=== PATIENT | male | born 1980 | race Caucasian/White ===

== ENCOUNTER 2023-04-04 18:35 | Emergency (ER) | payer OTHER, SELFPAY ==
--- NOTE | ~2023-04-04 | US_ITS ---
EXAMINATION: US venous doppler [facility] DATE: 04/04/2023 21:14 INDICATION: both swollen but R > L . TECHNIQUE: Grayscale images without and with compression and Doppler images of the bilateral lower ex tremity veins were obtained. COMPARISON: None FINDINGS: The right common femoral vein, profunda (deep) femoral vein, femoral vein, popliteal vein, peroneal v ein, posterior tibial veins, and greater saphenous vein are patent. The left common femoral vein, profunda (deep) femoral vein, femoral vein, popliteal vein, peroneal v ein, posterior tibial veins, and greater saphenous vein are patent. IMPRESSION: Patent bilateral lower extremity veins. No evidence of deep venous thrombosis. Reviewed, dictated and finalized at location [facility]
[2023-04-04 18:51] VITALS: BP 124/62; PULSE 81; RESP 20; TEMP 36.2; O2SAT 99
--- NOTE | 2023-04-04 19:56 | ED.EXTPRO ---
HPI - Extremity Problem General Chief complaint: Extremity Problem,Nontraumatic Stated complaint: LEGS SWELLING XWK Time Seen by Provider: 04/04/23 19:55 Source: patient and family () Limitations: no limitations History of Present Illness HPI Narrative: This is a 42 yo male who presents with bilateral lower extremity swelling for the past week. However, he has noticed increased swelling of the right more than the left since Monday. No shortness of breath. He states this happened 6 years ago as well. No history of DVT/PE. Not on anticoagulation. No family history of DVT/PE. No paresthesias. Related Data Allergies Allergy/AdvReac Type Severity Reaction Status Date / Time No Known Allergies Allergy Verified 04/04/23 19:46 [facility] Social History Social History (Updated 04/06/23 @ 16:48 by Katelyn Lopes MD) Social History: Exam Narrative: GENERAL: Well-appearing, well-nourished, and in no acute distress. HEAD: Normocephalic, atraumatic. EYES: Non injected, non icteric ENT: Nares clear, no rhinorrhea or epistaxis. NECK: Supple. CHEST: Speaking in full sentences. No respiratory distress. HEART: Regular rate and rhythm. DP pulses slightly diminished in the setting of pitting edema, but still palpable . ABDOMEN: Soft, nondistended. EXTREMITIES: Normal range of motion. Scattered non-discrete Erythema throughout bilateral lower extremities, R > L but not particularly warm to the touch. 3+ pitting edema on the right, 2+ on the left. 5/5 strength with hip flexion, knee flexion/extension, ankle dorsiflexion/plantarflexion. SKIN: Warm, dry. NEURO: No focal deficits. Alert and oriented x3. Sensation intact throughout bilateral lower extremities. PSYCH: Normal mood and affect. Course Vital Signs Vital signs: Vital Signs Temperature 97.2 F L 04/04/23 18:51 Pulse Rate 81 04/04/23 18:51 Respiratory Rate 20 04/04/23 18:51 Blood Pressure 124/62 04/04/23 18:51 Pulse Oximetry 99 04/04/23 18:51 Oxygen Delivery Room Air 04/04/23 18:51 Temperature 97.2 F L 04/04/23 18:51 Pulse Rate 81 04/04/23 18:51 Respiratory Rate 20 04/04/23 18:51 Blood Pressure 124/62 04/04/23 18:51 Pulse Oximetry 99 04/04/23 18:51 Oxygen Delivery Room Air 04/04/23 18:51 MDM - Extremity (Nontraumatic) MDM Narrative Medical decision making narrative: This is a 42 yo who presents with bilateral lower extremity swelling, though R > L. In the ED he is afebrile with vital signs within normal limits. They are slightly erythematous but without discrete borders. They are not particularly warm to the touch and don't have the classic appearance of cellulitis. I suspect this represents lymphedema / dependent edema rather than DVT however, out of an abundance of caution, will proceed with US study. Normal renal function and patient does not have edema elsewhere (eg no periorbital edema) to suggest nephrosis/nephritis. Negative for DVT in either extremity. Discharged home with instructions for outpatient follow up and temporizing measures in the interim such as elevation and compression stockings. Differential Diagnosis Differential diagnosis: Likely cellulitis, lower extremity edema, deep vein thrombosis of lower extremity and other (dependent edema / lymphedema ) Lab Data Attestation: I reviewed the patient's lab results. Lab results narrative: Very mild anemia. No leukotycosis. Platelets ok. 04/04/23 20:14 04/04/23 20:14 Labs: Lab Results 04/04/23 Range/Units 20:14 WBC 6.9 (4.5-10.0) K/mm3 RBC 4.58 L (4.6-6.20) M/mm3 Hgb 13.9 L (14.0-18.0) g/dL Hct 42.1 (42.0-52.0) % MCV 91.9 (80-100) fl MCH 30.3 (26-34) pg MCHC 33.0 (32-36) g/dl RDW 14.7 H (11.5-14.5) % Plt Count 262 (150-375) k/mm3 MPV 9.3 (7.4-10.4) fl Immature Gran % (Auto) 2.3 H (0-0.5) % Neut % (Auto) 50.4 (45.5-73.1) % Lymph % (Auto) 32.4 (18.3-44.2) % [place] % (Auto
[2023-04-04 20:29] LABS: Basophils Absolute Auto 0.1 K/mm3 (0.0-0.1); Basophils Percent Auto 1.3 % (0.2-1.2); Eosinophils Absolute Auto 0.2 K/mm3 (0-0.3); Eosinophils Percent Auto 2.8 % (0-4.4); Hematocrit 42.1 % (42.0-52.0); Hemoglobin 13.9 g/dL (14.0-18.0); Immature Granulocyte Absolute 0.16 K/mm3 (0.00-0.031); Immature Granulocyte Percent A 2.3 % (0-0.5); Lymphocytes Absolute Auto 2.22 K/mm3 (0.9-3.2); Lymphocytes Percent Auto 32.4 % (18.3-44.2); Mean Corpuscular Hemoglobin 30.3 pg (26-34); Mean Corpuscular Volume 91.9 fl (80-100); Mean Platelet Volume 9.3 fl (7.4-10.4); Monocytes Absolute Auto 0.7 K/mm3 (0.1-0.6); Monocytes Percent Auto 10.8 % (2.6-8.5); Neutrophils Absolute Auto 3.5 K/mm3 (1.3-6.7); Neutrophils Percent Auto 50.4 % (45.5-73.1); Platelet Count Result 262 k/mm3 (150-375); Red Blood Count 4.58 M/mm3 (4.6-6.20); Red Cell Distribution Width 14.7 % (11.5-14.5); White Blood Count 6.9 K/mm3 (4.5-10.0)
[2023-04-04 20:36] LABS: Anion Gap 10 mmol/L (8-16); Blood Urea Nitrogen 12 mg/dL (9-20); Calcium 9.1 mg/dL (8.4-10.2); Carbon Dioxide 25 mmol/L (22-30); Chloride 105 mmol/L (98-107); Estimated CRCL calculation 110 ml/min; Estimated Glomerular Filt Rate > 60; Glucose 90 mg/dL (65-110); Potassium 4.3 mmol/L (3.4-5.0); Sodium 140 mmol/L (137-145)
[2023-04-04 20:38] LABS: INR 0.9; Prothrombin Time 12.2 Seconds (11.1-14.7)
[2023-04-04 20:39] LABS: Partial Thromboplastin Time 28.3 SECONDS (22.3-36.8)
== END 2023-04-04 21:42 | disposition home or self-care (01) ==
PROVIDERS: Emergency Provider Student in an Organized Health Care Education/Training Program
DX: R60.9 Edema, unspecified (principal)
CPT/HCPCS: 36415; 80048; 85025; 85610; 85730; 93970; 99284